=== PATIENT | female | born 1990 | race American Indian/Alaskan Native ===

== ENCOUNTER 2020-09-06 17:10 | Emergency (ER) | payer MEDICAID ==
[2020-09-06 18:57] VITALS: BP 141/93
== END 2020-09-07 05:00 | disposition left against medical advice (07) ==
LOC: ED 17:10
DX: I10 Essential (primary) hypertension (principal); Z53.21 Procedure and treatment not carried out due to patient leaving prior to being seen by health care provider

== ENCOUNTER 2021-12-15 23:43 | Emergency (ER) | payer MEDICAID ==
[2021-12-15 23:54] VITALS: BP 130/93
--- NOTE | 2021-12-16 00:29 | XRay Report ---
LEFT HAND 3 VIEW(S) INDICATION / CLINICAL INFORMATION: FALL COMPARISON: None available. FINDINGS: BONES / JOINT(S): Acute minimally displaced and laterally angulated fracture involving proximal phala nx left small finger is present. No additional acute osseous injury. No significant arthritis. Minima l ulnar minus variance. SOFT TISSUES: No significant abnormality. ADDITIONAL FINDINGS: None. IMPRESSION: 1. Extra-articular fracture of the proximal small finger phalanx minimal lateral angulation. Signer Name: Amrik Saucedo II, MD Signed: 12/16/2021 12:24 AM Workstation Name: [id number]
[2021-12-16] MEDS ORDERED: IBUPROFEN 800 MG TAB PO ONE (02:11)
--- NOTE | 2021-12-16 02:47 | Emergency Department Report ---
ED Upper Extremity Inj HPI - General Chief Complaint: Extremity Injury, Upper Stated Complaint: LEFT PINKY FINGER INJURY Time Seen by Provider: 12/16/21 02:18 Source: patient Mode of arrival: Ambulatory Limitations: Other - History of Present Illness Initial Comments: 31-year-old -[place] female was enjoying event at home after she had consumed an excessive amount of wine resulting in her intoxication and she lost her balance falling awkwardly onto her left hand injuring her fifth digit which is now swollen and appears to be slightly deformed. She reports no loss of consciousness, Complaint: Injury to:: left -: Sudden - Related Data Home Medications Medication Instructions Recorded Confirmed Last Taken amLODIPine [Norvasc] 09/21/13 09/21/13 Unknown Previous Rx's Medication Instructions Recorded Last Taken Type Naproxen [Naprosyn] 375 mg PO BID PRN #20 tablet 09/21/13 Unknown Rx LORazepam [Ativan] 1 mg PO QHS #20 tab 03/30/14 Unknown Rx Azithromycin [Zithromax Z-CARLOS] 250 mg PO DAILY #6 tablet 08/17/14 Unknown Rx Codeine Phosphate/Guaifenesin 10 ml PO BID #118 ml 08/17/14 Unknown Rx [Guaiatussin AC Liquid] Ibuprofen [Motrin 600 MG tab] 600 mg PO Q8H PRN #50 tablet 08/17/14 Unknown Rx Mometasone Furoate [Nasonex] 2 spray NS QDAY #1 bottle 08/17/14 Unknown Rx Ketorolac [Toradol] 10 mg PO Q6H PRN #14 12/16/21 Unknown Rx traMADoL [Ultram] 50 mg PO Q4HR PRN #14 tablet 12/16/21 Unknown Rx Allergies Allergy/AdvReac Type Severity Reaction Status Date / Time No Known Allergies Allergy Verified 08/17/14 13:27 ED Review of Systems ROS: Stated complaint: LEFT PINKY FINGER INJURY Other details as noted in HPI Comment: All other systems reviewed and negative ED Past Medical Hx - Past Medical History Hx Hypertension: Yes - Surgical History Additional Surgical History: D&C, x1 - Social History Smoking Status: Current Every Day Smoker Substance Use Type: None - Medications Home Medications: Home Medications Medication Instructions Recorded Confirmed Last Taken Type Naproxen [Naprosyn] 375 mg PO BID PRN #20 tablet 09/21/13 Unknown Rx amLODIPine [Norvasc] 09/21/13 09/21/13 Unknown History LORazepam [Ativan] 1 mg PO QHS #20 tab 03/30/14 Unknown Rx Azithromycin [Zithromax Z-CARLOS] 250 mg PO DAILY #6 tablet 08/17/14 Unknown Rx Codeine Phosphate/Guaifenesin 10 ml PO BID #118 ml 08/17/14 Unknown Rx [Guaiatussin AC Liquid] Ibuprofen [Motrin 600 MG tab] 600 mg PO Q8H PRN #50 tablet 08/17/14 Unknown Rx Mometasone Furoate [Nasonex] 2 spray NS QDAY #1 bottle 08/17/14 Unknown Rx Ketorolac [Toradol] 10 mg PO Q6H PRN #14 12/16/21 Unknown Rx traMADoL [Ultram] 50 mg PO Q4HR PRN #14 tablet 12/16/21 Unknown Rx ED Physical Exam - General Limitations: Other General appearance: alert, in no apparent distress - Head Head exam: Present: atraumatic, normocephalic, normal inspection - Eye Eye exam: Present: normal appearance, PERRL, EOMI Pupils: Present: normal accommodation - ENT ENT exam: Present: normal exam, mucous membranes moist, TM's normal bilaterally - Neck Neck exam: Present: normal inspection, full ROM - Respiratory Respiratory exam: Present: normal lung sounds bilaterally, chest wall tenderness. Absent: respiratory distress, wheezes, rales, rhonchi, accessory muscle use, decreased breath sounds - Cardiovascular Cardiovascular Exam: Present: regular rate, normal rhythm. Absent: systolic murmur, diastolic murmur, rubs, gallop - GI/Abdominal GI/Abdominal exam: Present: soft, normal bowel sounds. Absent: distended, tenderness, hyperactive bowel sounds, hypoactive bowel sounds, organomegaly, mass, bruit - Extremities Exam Extremities exam: Present: normal inspection - Back Exam Back exam: Present: normal inspection. Absent: CVA tenderness (R), CVA tenderness (L) - Neurological Exam Neurological exam: Present: alert, oriented X3, CN II-XII intact - Psychiatric Psychiatric exam: Present: normal affect, normal mood - Skin Skin exam: Present: warm, dry, intact, normal color. Absent: rash ED Course Vital Signs 12/15/21 23:53 Temperature 98.2 F Pulse Rate 111 H Respiratory 20 Rate Blood Pressure 130/93 O2 Sat by Pulse 97 Oximetry - Orthopedic Splinting/Casting Injury #1 Side: left Upper Extremity Injury Location: finger Upper Extremity Immobilizer: finger (other) ED Medical Decision Making - Radiology Data Radiology results: report reviewed [address] [address] XRay Report Signed Patient: RONEN RM MR#: [id number] : 03/31/1960 Acct:[id number] Age/Sex: 61 / F ADM Date: 12/15/21 [facility] [address] [place] [address] XRay Report Signed Patient: ROSA OLIVERA MR#: [id number] : 1990 Acct:[id number] Age/Sex: 31 / F ADM Date: 12/15/21 Loc: ED Attending Dr: Ordering Physician: ED MD CATHERINE Date of Service: 12/15/21 Procedure(s): XR hand 3+V LT Accession Number(s): [id number] cc: ED MD CATHERINE Fluoro Time In Minutes: LEFT HAND 3 VIEW(S) INDICATION / CLINICAL INFORMATION: FALL COMPARISON: None available. FINDINGS: BONES / JOINT(S): Acute minimally displaced and laterally angulated fracture involving proximal phalanx left small finger is present. No additional acute osseous injury. No significant arthritis. Minimal ulnar minus variance. SOFT TISSUES: No significant abnormality. ADDITIONAL FINDINGS: None. IMPRESSION: 1. Extra-articular fracture of the proximal small finger phalanx minimal lateral angulation. Signer Name: Ignacia Shea II, MD Signed: 12/16/2021 12:24 AM Workstation Name: [id number] Transcribed By: BRANDON Dictated By: IGNACIA SHEA II, MD Electronically Authenticated By: IGNACIA SHEA II, MD Signed Date/Time: 12/16/2123 DD/ TD/TT: Print - Medical Decision Making Finger splinted Critical care attestation.: If time is entered above; I have spent that time in minutes in the direct care of this critically ill patient, excluding procedure time. ED Disposition Clinical Impression: Finger fracture, left Disposition: 01 HOME / SELF CARE / HOMELESS Is pt being admited?: No Does the pt Need Aspirin: No Condition: Stable Instructions: Finger Fracture, Adult Prescriptions: Ketorolac [Toradol] 10 mg PO Q6H PRN #14 PRN Reason: Pain traMADoL [Ultram] 50 mg PO Q4HR PRN #14 tablet PRN Reason: Pain Referrals: PRIMARY CAREMD [Primary Care Provider] - 3-5 Days THOMAS DAVEY MD [Staff Physician] - 3-5 Days (This is orthopedic please follow-up for reevaluation of your finger)
== END 2021-12-16 03:30 | disposition home or self-care (01) ==
LOC: ED 23:43
DX: S62.607A Fracture of unspecified phalanx of left little finger, initial encounter for closed fracture (principal); F17.200 Nicotine dependence, unspecified, uncomplicated; I10 Essential (primary) hypertension; X58.XXXA Exposure to other specified factors, initial encounter; Y93.89 Activity, other specified; Y92.89 Other specified places as the place of occurrence of the external cause; Y99.8 Other external cause status
CPT/HCPCS: 99283